=== PATIENT | female | born 1970 | race Caucasian/White ===

== ENCOUNTER → 2016-10-09 | Day surgery (SDC) | payer OTHER | END | disposition home or self-care (01) | LOC: FAS 07:35 | DX: Z12.11 Encounter for screening for malignant neoplasm of colon (principal); F41.9 Anxiety disorder, unspecified; I10 Essential (primary) hypertension; J45.909 Unspecified asthma, uncomplicated; E11.9 Type 2 diabetes mellitus without complications; E03.9 Hypothyroidism, unspecified; D64.9 Anemia, unspecified; F31.9 Bipolar disorder, unspecified; E61.1 Iron deficiency; G47.33 Obstructive sleep apnea (adult) (pediatric); F43.10 Post-traumatic stress disorder, unspecified; Z83.71 Family history of colonic polyps; Z88.0 Allergy status to penicillin; Z88.2 Allergy status to sulfonamides; Z79.899 Other long term (current) drug therapy; Z98.890 Other specified postprocedural states; Z99.81 Dependence on supplemental oxygen; Z87.891 Personal history of nicotine dependence; Z80.0 Family history of malignant neoplasm of digestive organs | CPT/HCPCS: 84703; J2704 ==